=== PATIENT | female | born 1975 | race Caucasian/White ===

== ENCOUNTER 2017-07-11 15:17 | Outpatient (CLI) | payer MEDICAID, OTHER ==
[2017-07-11] MEDS ORDERED: SOD CHLORIDE 0.45% 1,000 ML IV (17:00)
[2017-07-11 17:13] LABS: ADD MAN DIFF? NO
[2017-07-11] MEDS: SOD CHLORIDE 0.9% 1,000 ML IV (17:15)
[2017-07-11 17:22] LABS: WHITE BLOOD COUNT 10.5 10^3/ul (4.8-10.8)
[2017-07-11 17:22] LABS: BASOPHILS % 0.3 % (0.0-2.0); EOSINOPHILS # 0.1 10^3/ul (0.0-0.5); HEMATOCRIT 29.2 % (37.0-47.0); HEMOGLOBIN 9.8 g/dl (12.0-16.0); LYMPHOCYTES # 1.7 10^3/ul (0.8-2.9); LYMPHOCYTES % 16.3 % (15.0-51.0); MEAN CORPUSCULAR HEMOGLOBIN 31.5 pg (29.0-33.0); MEAN CORPUSCULAR HGB CONC 33.6 g/dl (32.0-37.0); MEAN CORPUSCULAR VOLUME 93.9 fl (82.0-101.0); MEAN PLATELET VOLUME 10.9 fl (7.4-10.4); MONOCYTE # 0.7 10^3/ul (0.3-0.9); MONOCYTES % 6.3 % (0.0-11.0); NEUTROPHIL # 7.9 10^3/ul (1.6-7.5); NEUTROPHILS % 75.1 % (39.0-77.0); PLATELET COUNT 293 10^3/UL (140-415); RED BLOOD COUNT 3.11 10^6/ul (4.20-5.40); RED CELL DISTRIBUTION WIDTH 14.8 % (11.5-14.5)
[2017-07-11 17:38] LABS: ALANINE AMINOTRANSFERASE 25 IU/L (13-69); ALBUMIN 3.7 g/dl (3.3-4.9); ALBUMIN/GLOBULIN RATIO 1.05; ALKALINE PHOSPHATASE 112 IU/L (42-121); ANION GAP 14 (8-16); ASPARTATE AMINO TRANSFERASE 15 IU/L (15-46); BLOOD UREA NITROGEN 5 mg/dl (7-20); CALCIUM 9.6 mg/dl (8.4-10.2); CARBON DIOXIDE 24 mmol/L (21-31); CHLORIDE 105 mmol/L (97-110); CREATININE 0.48 mg/dl (0.44-1.00); GLUCOSE 91 mg/dl (70-220); POTASSIUM 3.5 mmol/L (3.5-5.1); SODIUM 139 mmol/L (135-144); TOTAL PROTEIN 7.2 g/dl (6.1-8.1)
[2017-07-11 17:48] LABS: ADD UMIC YES; UR AMORPHOUS CRYSTAL FEW /HPF (NONE SEEN); UR ASCORBIC ACID NEGATIVE (NEGATIVE); UR BACTERIA FEW /HPF (NONE SEEN); UR BILIRUBIN (Dip) NEGATIVE (NEGATIVE); UR BLOOD (Dip) NEGATIVE (NEGATIVE); UR CLARITY CLEAR (CLEAR); UR COLOR YELLOW (YELLOW); UR GLUCOSE (Dip) NEGATIVE (NEGATIVE); UR KETONES (Dip) NEGATIVE (NEGATIVE); UR LEUKOCYTE ESTERASE (Dip) TRACE Leu/ul (NEGATIVE); UR NITRITE (Dip) NEGATIVE (NEGATIVE); UR RBC 2 /HPF (0-5); UR SPECIFIC GRAVITY (Dip) 1.004 (1.003-1.030); UR SQUAMOUS EPITHELIAL CELL FEW /HPF (FEW); UR TOTAL PROTEIN (Dip) NEGATIVE (NEGATIVE); UR UROBILINOGEN (Dip) NEGATIVE (NEGATIVE); UR WBC 3 /HPF (0-5)
== END 2017-07-11 20:22 | disposition home or self-care (01) ==
LOC: OBT 15:17 → L-D 15:19 → OBT 20:22
DX: O21.0 Mild hyperemesis gravidarum (principal); Z3A.27 27 weeks gestation of pregnancy
CPT/HCPCS: 36415; 76817; 80053; 81001; 85025; 96360; 96361

== ENCOUNTER → 2017-07-31 08:06 | Emergency (ER) | payer SELFPAY, MEDICAID | END | disposition left against medical advice (07) | LOC: E/R 08:06 | DX: Z53.21 Procedure and treatment not carried out due to patient leaving prior to being seen by health care provider (principal) ==

== ENCOUNTER 2017-10-03 10:21 | Inpatient (IN) | payer MEDICAID ==
[2017-10-03] MEDS ORDERED: CARBOPROST 250 MCG INJ IM (11:00)
[2017-10-03] MEDS ORDERED: OXYTOCIN 30 UNITS/LR 500 ML IV ×2 (11:00)
[2017-10-03] MEDS ORDERED: METHYLERGONOVINE 0.2 MG INJ IM (11:00)
[2017-10-03] MEDS ORDERED: IBUPROFEN 600 MG TAB PO (11:00)
[2017-10-03] MEDS ORDERED: MISOPROSTOL 200 MCG TAB PR (11:00)
[2017-10-03] MEDS: LACTATED RINGER'S 1,000 ML IV ×2 (11:13→19:00)
[2017-10-03 11:28] LABS: ADD MAN DIFF? NO
[2017-10-03 11:36] LABS: WHITE BLOOD COUNT 9.1 10^3/ul (4.8-10.8)
[2017-10-03 11:36] LABS: BASOPHILS % 0.3 % (0.0-2.0); EOSINOPHILS # 0.1 10^3/ul (0.0-0.5); EOSINOPHILS % 0.5 % (0.0-7.0); HEMATOCRIT 33.8 % (37.0-47.0); HEMOGLOBIN 11.1 g/dl (12.0-16.0); LYMPHOCYTES # 1.4 10^3/ul (0.8-2.9); LYMPHOCYTES % 15.3 % (15.0-51.0); MEAN CORPUSCULAR HEMOGLOBIN 31.4 pg (29.0-33.0); MEAN CORPUSCULAR HGB CONC 32.8 g/dl (32.0-37.0); MEAN CORPUSCULAR VOLUME 95.5 fl (82.0-101.0); MEAN PLATELET VOLUME 11.9 fl (7.4-10.4); MONOCYTE # 0.5 10^3/ul (0.3-0.9); MONOCYTES % 5.7 % (0.0-11.0); NEUTROPHILS % 76.7 % (39.0-77.0); PLATELET COUNT 246 10^3/UL (140-415); RED BLOOD COUNT 3.54 10^6/ul (4.20-5.40); RED CELL DISTRIBUTION WIDTH 14.6 % (11.5-14.5)
[2017-10-03 11:59] LABS: INR 0.82; PROTIME 11.4 Sec (11.9-14.9); PT RATIO 0.9
[2017-10-03] MEDS: AMPICILLIN 2 GM/NS (PMX) 100 ML IV (12:02)
[2017-10-03] MEDS: OXYTOCIN 30 UNITS/LR 500 ML IV (12:06)
[2017-10-03 12:25] LABS: HEPATITIS B SURFACE ANTIGEN NEGATIVE (NEGATIVE)
[2017-10-03 14:29] LABS: ADD UMIC YES; UR ASCORBIC ACID NEGATIVE (NEGATIVE); UR BILIRUBIN (Dip) NEGATIVE (NEGATIVE); UR BLOOD (Dip) 2+ mg/dL (NEGATIVE); UR BUDDING YEAST FEW /HPF (NONE SEEN); UR CLARITY SLIGHTLY CLOUDY (CLEAR); UR COLOR YELLOW (YELLOW); UR GLUCOSE (Dip) NEGATIVE (NEGATIVE); UR KETONES (Dip) NEGATIVE (NEGATIVE); UR LEUKOCYTE ESTERASE (Dip) 2+ Leu/ul (NEGATIVE); UR NITRITE (Dip) NEGATIVE (NEGATIVE); UR RBC 0 /HPF (0-5); UR SPECIFIC GRAVITY (Dip) 1.009 (1.003-1.030); UR SQUAMOUS EPITHELIAL CELL FEW /HPF (FEW); UR TOTAL PROTEIN (Dip) NEGATIVE (NEGATIVE); UR UROBILINOGEN (Dip) NEGATIVE (NEGATIVE); UR WBC 10 /HPF (0-5)
[2017-10-03] MEDS: AMPICILLIN 1 GM/NS (PMX) 50 ML IV ×3 (15:36→23:07)
[2017-10-03 19:45] LABS: RAPID PLASMA REAGIN NONREACTIVE (NR)
[2017-10-04] MEDS: BUTORPHANOL 2 MG INJ IV (02:33)
[2017-10-04] MEDS: LACTATED RINGER'S 1,000 ML IV ×3 (03:45→15:19)
[2017-10-04] MEDS: AMPICILLIN 1 GM/NS (PMX) 50 ML IV ×4 (03:45→15:46)
[2017-10-04] MEDS ORDERED: OXYTOCIN 30 UNITS/LR 500 ML IV (11:00)
[2017-10-04] MEDS: OXYTOCIN 30 UNITS/LR 500 ML IV ×3 (11:03→21:39)
[2017-10-04] MEDS ORDERED: DIPHENHYDRAMINE 50 MG INJ IV (15:30)
[2017-10-04] MEDS ORDERED: NALOXONE (0.4 MG/ML) INJ IV (15:30)
[2017-10-04] MEDS ORDERED: EPHEDrine SULFATE 50 MG/5 ML SYG IV (15:30)
[2017-10-04] MEDS ORDERED: FENTAnyl 2MCG/ML-ROPIV 0.2% 100 ML BAG EPI (15:30)
[2017-10-04] MEDS ORDERED: ONDANSETRON 4 MG INJ IV (15:30)
[2017-10-04] MEDS: MINERAL OIL LIGHT 10 ML VIAL TOP (16:27)
[2017-10-04] MEDS: LIDOCAINE 1% (MPF) 30 ML INJ INJ (17:41)
[2017-10-04] MEDS: LACTATED RINGER'S 1,000 ML IV* (18:42)
[2017-10-04] MEDS ORDERED: CARBOPROST 250 MCG INJ IM (19:00)
[2017-10-04] MEDS ORDERED: MISOPROSTOL 200 MCG TAB PR (19:00)
[2017-10-04] MEDS ORDERED: LANOLIN 7 GM TUBE TOP (19:00)
[2017-10-04] MEDS ORDERED: HYDROCODONE/APAP (5/325) TAB PO (19:00)
[2017-10-04] MEDS ORDERED: ZOLPIDEM 5 MG TAB PO (19:00)
[2017-10-04] MEDS ORDERED: METHYLERGONOVINE 0.2 MG INJ IM (19:00)
[2017-10-04] MEDS: BENZOCAINE 20% 56 ML SPRAY TOP (21:28)
[2017-10-04] MEDS: WITCH HAZEL/GLYCERIN PAD PR (21:28)
[2017-10-04] MEDS: SENNA/DOCUSATE NA (8.6MG/50MG) TAB PO (21:37)
[2017-10-04] MEDS: MAGNESIUM HYDROXIDE 30ML CUP PO (21:37)
[2017-10-04] MEDS: HYDROCODONE/APAP (5/325) TAB PO (21:41)
[2017-10-04] MEDS: IBUPROFEN 600 MG TAB PO (23:46)
[2017-10-04] MEDS: CEPHALEXIN 500 MG CAP PO (23:46)
[2017-10-05] MEDS: LACTATED RINGER'S 1,000 ML IV* ×2 (02:42→10:11)
[2017-10-05] MEDS: IBUPROFEN 600 MG TAB PO ×3 (05:22→18:06)
[2017-10-05] MEDS: CEPHALEXIN 500 MG CAP PO ×3 (05:22→18:06)
[2017-10-05 08:17] LABS: ADD MAN DIFF? NO
[2017-10-05 08:20] LABS: WHITE BLOOD COUNT 10.4 10^3/ul (4.8-10.8)
[2017-10-05 08:20] LABS: BASOPHILS % 0.2 % (0.0-2.0); EOSINOPHILS # 0.1 10^3/ul (0.0-0.5); EOSINOPHILS % 0.5 % (0.0-7.0); HEMATOCRIT 23.8 % (37.0-47.0); HEMOGLOBIN 7.8 g/dl (12.0-16.0); LYMPHOCYTES # 1.4 10^3/ul (0.8-2.9); LYMPHOCYTES % 13.9 % (15.0-51.0); MEAN CORPUSCULAR HEMOGLOBIN 31.3 pg (29.0-33.0); MEAN CORPUSCULAR HGB CONC 32.8 g/dl (32.0-37.0); MEAN CORPUSCULAR VOLUME 95.6 fl (82.0-101.0); MEAN PLATELET VOLUME 11.5 fl (7.4-10.4); MONOCYTE # 0.6 10^3/ul (0.3-0.9); MONOCYTES % 5.9 % (0.0-11.0); NEUTROPHIL # 8.2 10^3/ul (1.6-7.5); NEUTROPHILS % 78.6 % (39.0-77.0); PLATELET COUNT 178 10^3/UL (140-415); RED BLOOD COUNT 2.49 10^6/ul (4.20-5.40); RED CELL DISTRIBUTION WIDTH 14.7 % (11.5-14.5)
[2017-10-05] MEDS: SENNA/DOCUSATE NA (8.6MG/50MG) TAB PO ×2 (10:14→21:00)
[2017-10-05] MEDS: MAGNESIUM HYDROXIDE 30ML CUP PO ×2 (10:14→21:00)
[2017-10-05] MEDS: DIBUCAINE 1% 30 GM OINT PR (10:24)
[2017-10-06] MEDS: CEPHALEXIN 500 MG CAP PO ×3 (00:27→11:30)
[2017-10-06] MEDS: IBUPROFEN 600 MG TAB PO ×3 (05:35→11:30)
[2017-10-06] MEDS: SENNA/DOCUSATE NA (8.6MG/50MG) TAB PO (09:00)
[2017-10-06] MEDS: MAGNESIUM HYDROXIDE 30ML CUP PO (09:00)
[2017-10-06] MEDS: VARICELLA VACCINE LIVE/PF 1,350 UNIT/0.5 ML ML SC* (09:15)
[2017-10-06] MEDS: MEASLES,MUMPS,RUBELLA VACCINE INJ SC* (09:15)
[2017-10-06] MEDS: WITCH HAZEL/GLYCERIN PAD PR (11:30)
[2017-10-06] MEDS: DIPHTH/TET/ACEL PERTUSS (ADULT) 0.5 ML VIAL IM* (15:21)
== END 2017-10-06 17:10 | disposition home or self-care (01) | DRG 775 ==
LOC: L-D 10:21 → PP1 10-04 18:24 → L-D 20:39
PROVIDERS: Obstetrics & Gynecology
PROC: 10E0XZZ Delivery of Products of Conception, External Approach (ICD-10-PCS; principal; 2017-10-04)
PROC: 0KQM0ZZ Repair Perineum Muscle, Open Approach (ICD-10-PCS; 2017-10-04)
PROC: 3E033VJ Introduction of Other Hormone into Peripheral Vein, Percutaneous Approach (ICD-10-PCS; 2017-10-04)
DX: O70.1 Second degree perineal laceration during delivery (principal); Z37.0 Single live birth; Z3A.39 39 weeks gestation of pregnancy
CPT/HCPCS: 62319; 76815; 81001; 85025; 85610; 85730; 86592; 86850; 86900; 86901; 87086; 87340; 90715